=== PATIENT | male | born 1995 | race Caucasian/White ===

== ENCOUNTER 2020-06-27 10:00 | Emergency (ER) | payer OTHER ==
[2020-06-27 10:11] VITALS: BP 155/100; PULSE 67; TEMP 98; BMI 26.5
--- NOTE | 2020-06-27 10:18 | PDOC ---
History of Present Illness - General Chief Complaint: Foreign Body (FB) Stated Complaint: splashed with Drano Time Seen by Provider: 06/27/20 10:15 History Source: Patient Exam Limitations: No Limitations - History of Present Illness Initial Comments: 06/27/20 10:16 25y M no pmhx presenst with complaint of eye irritation. Pt was clearing a drain, had poured drano into the drain, and then was taking off the ptrap when it splashed onhis face. Patient states that he was able to close his eyes prior To this clashing denies any visual complaints including burning in his eyes, b lurry vision, double vision. Notes that his primary complaint is burning in the skin surrounding the eyes. He was able to splash water on it immediately helped resolve burning so came to the ER for evaluation. Patient denies any other injuries. ROS: Constitutional - no reported Fever, Chills, HEENT: no reported vision changes, sore throat Respiratory: no reported cough, sob, hemoptysis Cardiac: no reported chest pain, palpitations, light headedness, leg swelling Abd/GI: no reported abd pain, nausea, vomiting, blood per rectum, melena, diarrhea : no reported dysuria, frequency, discharge Musculskelatal - no reported back pain, joint swelling skin - + skin burning no reported bruising, erythema, rash neurological: no reported headache, numbness, focal weakness, tingling, ataxia, hematologic: no reported easy bruising, easy bleeding Exam: GENERAL: The patient is awake, alert, and fully oriented, Nontoxic - in no acute distress. HEAD: Normocephalic, atraumatic. EYES: extraocular movements intact, sclera anicteric, conjunctiva clear. vision 20/20 L/R/b/l uncorrected ENT: Normal voice, Moist mucous membranes. SKIN: Warm, Dry, normal turgor, area irrigated for 20 min tp feels improved no signs of vision compromise with normal vision exam will dc with supportive care return precautions were discussed I discussed the physical exam findings, ancillary test results and final diagnoses with the patient. I answered all of the patient's questions. The patient was satisfied with the care received and felt comfortable with the discharge plan and treatment plan. The patient will call their primary care physician within 24 hours to arrange follow-up and will return to the Emergency Department with any new, persistent or worsening symptoms. Past History - Medical History Allergies/Adverse Reactions: Allergies Allergy/AdvReac Type Severity Reaction Status Date / Time dog dander Allergy Verified 06/27/20 10:05 Home Medications: Ambulatory Orders NK [No Known Home Medication] 06/27/20 COPD: No - Psycho-Social/Smoking History Smoking History: Never smoked Have you smoked in the past 12 months: No Information on smoking cessation initiated: No - Substance Abuse Hx (Audit-C & DAST Scrn) How often the patient has a drink containing alcohol: Monthly or less Number of drinks the patient has on a typical day: 1 or 2 Score: In Men: 4 or > Positive; In Women: 3 or > Positive: 1 Screen Result (Pos requires Nsg. Audit-10AR): Negative In the last yr the pt used illegal drug/Rx for NonMed reason: No Score: Yes response is considered Positive: 0 Screen Result (Positive result requires Nsg. DAST-10): Negative *Physical Exam - Vital Signs Last Vital Signs Temp Pulse Resp BP Pulse Ox 98 F 67 18 155/100 100 06/27/20 10:04 06/27/20 10:04 06/27/20 10:04 06/27/20 10:04 06/27/20 10:04 Discharge - Discharge Information Problems reviewed: Yes Clinical Impression/Diagnosis: Alkaline chemical burn of skin Condition: Improved Disposition: HOME - Admission No - Follow up/Referral Referrals: Alex Jean Baptiste MD [Staff Physician] - - Patient Discharge Instructions Patient Printed Discharge Instructions: DI for Chemical Eye Burn Additional Instructions: Return to the emergency department immediately with ANY any changes in your vision Use eye protection You MUST call and follow up with your doctor tomorrow for further evaluation of your symptoms. Results were discussed with you. Please make sure your doctor reviews the results of your emergency evaluation. Your Emergency Department visit is not complete without a follow up with your doctor. Print Language: GEORGIAN - Post Discharge Activity
== END 2020-06-27 10:45 | disposition home or self-care (01) ==
LOC: FER 10:00
DX: T26.62XA Corrosion of cornea and conjunctival sac, left eye, initial encounter (principal); T26.61XA Corrosion of cornea and conjunctival sac, right eye, initial encounter
CPT/HCPCS: 99283-25

== ENCOUNTER 2020-10-28 14:21 | Emergency (ER) | payer OTHER ==
[2020-10-28 14:42] VITALS: BP 150/68; PULSE 110; TEMP 98; BMI 28.5
== END 2020-10-28 15:12 | disposition home or self-care (01) ==
LOC: JER 14:21
DX: J45.901 Unspecified asthma with (acute) exacerbation (principal); Z03.818 Encounter for observation for suspected exposure to other biological agents ruled out
CPT/HCPCS: 71046-TC-FY; 99284-25; C9803; U0003

== ENCOUNTER 2021-02-10 17:36 | Emergency (ER) | payer OTHER ==
[2021-02-10 17:53] VITALS: BP 126/66; PULSE 66; TEMP 98.5; BMI 25.9
== END 2021-02-10 18:45 | disposition home or self-care (01) ==
LOC: JER 17:36
DX: Z11.52 Encounter for screening for COVID-19 (principal)
CPT/HCPCS: 99284-25; C9803; U0003; U0005